=== PATIENT | female | born 1945 | race Caucasian/White ===

== ENCOUNTER 2016-08-24 17:13 | Emergency (ER) | payer MEDICARE, BC ==
[~2016-08-24] VITALS: Ht 165.1 cm; Wt 79.4 kg
--- OUTSIDE RECORDS SUMMARY | 2016-08-24 17:58 | External Medical Summary Rpt ---
Author Author , Organization [facility] Address Unknown Phone Unavailable Purpose Continuity of Care Document - through 2016
--- OUTSIDE RECORDS SUMMARY | 2016-08-24 17:59 | External Medical Summary Rpt ---
Author Author , Organization [facility] Address Unknown Phone Unavailable Purpose Continuity of Care Document - 02-22-2013 through 2016 Immunization Name Date Route CVX Reacti Commen Provid Is Given on t er Refuse d PPV23 Histor [facility] No 2016 ical C39851 Inform ation - Source Unspec ified Zoster 121 Histor H201 No 2013 uscula ical r Inform ation - Source Unspec ified
--- OUTSIDE RECORDS SUMMARY | 2016-08-24 17:59 | External Medical Summary Rpt ---
Author Author [facility] Organization [facility] Address Unknown Phone Unavailable Purpose Continuity of Care Document - through 2016
--- OUTSIDE RECORDS SUMMARY | 2016-08-24 17:59 | External Medical Summary Rpt ---
Author Author , Organization [facility] Address Unknown Phone Unavailable Purpose Continuity of Care Document - 02-22-2013 through 2016 Immunization Name Date Route CVX Reacti Commen Provid Is Given on t er Refuse d PPV23 Histor [facility] No 2016 ical P18385 Inform ation - Source Unspec ified Zoster 121 Histor H201 No 2013 uscula ical r Inform ation - Source Unspec ified
[2016-08-24] MEDS ORDERED: NAPROXEN SODIU500 MG PO (18:03)
--- NOTE | 2016-08-24 18:04 | Emergency Room Report ---
History of Present Illness Time Seen by [id number] Presenting Problem in Triage Pt arrived:Walked Presenting Problem:PT C/O PAIN IN THE MIDDLE OF HER BACK THAT STARTED THIS AM WHEN SHE GOT OUT OF BED, ADVISES IT MAY BE MUSCLE SPASMS Onset of symptoms date/time:/ or onset unknown for:MEDICAL HX UNKNOWN Treatment Prior to Arrival: [employer] Provided by: Sepsis Risk Assessment: Temp: 98.5 B/P: 168/77 MAP: 107 Pulse: 59 Resp: 16 Recent fever? N Clinical Suspician of Infection? N Mental Status: 1 - Regular (Normal Baseline) Sepsis Risk:Low Sepsis Risk Have you (or family members/close friends) recently traveled outside the [place]? N If Yes, where/when: Have you had exposure to infectious disease within the past month? N TB? Other? Specify: Hx right mid back spasms, usually relieved with narcotics, but a little more painful today. No trauma, no chest pain, no SOB, no palpitations, no neurological problems. Chronic issue. ALLERGIES Coded Allergies: azithromycin (Mild, 08/24/16) enoxaparin (Mild, 08/24/16) levofloxacin (Mild, 08/24/16) History Medical History General CAD? No Angina: No NC: No Hypertension? No Hyperlipidemia? No CHF? No DVT? No PE? No COPD? No Asthma? No Anemia? No GERD? No Gastric ulcers? No GI Bleed? No Hernia? No Thyroid Problems? No Hypothyroidism? No CVA? No Seizures? No Diabetes? No Renal Insuffiency? No End Stage Renal Disease? No UTI? No Stones? No BPH? No GB Disease: No Nephritic Syndrome? No Asplenia? No Hepatitis? No Sickle Cell Disease? No Arthritis? No Migraines? No Cataracts? No Glaucoma? No MRSA? No HIV? No TB? No Anxiety? No Depression? 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 Immunization Hx DT/Tetanus 1-4 Years Ago Surgical Hx Previous Surgery?Y HYSTERECTOMY CATARAT DNC Social History Smoking Hx Smoker: Never Smoker Tobacco: No Alcohol Alcohol: No Review of Systems All Other Systems Reviewed and Negative Musculoskeletal see HPI Physical Exam Vital Signs Vital Signs Date Time Temp Pulse Resp B/P Pulse O2 O2 Flow FiO2 Ox Delivery Rate 08/24 1719 98.5 59 16 168/77 98 General Appearance normal appearance, WD/WN, no apparent distress Eye Exam - bilateral eye normal exam, bilateral eye PERRL, bilateral eye EOMI Neck normal inspection, non-tender, supple, full range of motion Respiratory Status Yes: trachea midline, chest symmetrical, non tender chest. No: respiratory distress (R rhomboid muscle spasm), tender on palpation, use of accessory muscles, pain on inspiration, pain on expiration. Lung Sounds bilateral: normal breath sounds, lungs clear. Cardiovascular normal exam, regular rate/rhythm, no peripheral edema, no gallop, no JVD, no murmur, no rub, normal peripheral pulses Peripheral Pulses Pulses normal Yes Back normal inspection, muscle spasm Extremities non-tender, normal range of motion, normal inspection, normal capillary refill, no pedal edema Strength 5 Upper Ext (L), 5 Upper Ext (R), 5 Lower Ext (L), 5 Lower Ext (R) Neurologic alert, normal exam, no motor/sensory deficits, oriented x 3 Skin intact, normal color, warm/dry Medical Decision Making LABS/Meds/Orders Pt receiving controlled substance in ED? No Results/Orders Current Medication Orders Sig/Wesly Start time Last Medication Dose Route Stop Time Status Admin Naproxen 500 MG ONCE ONE 08/24 1814 AC PO 08/25 1815 Departure Departure Time of Disposition 180 Disposition DC Home or Self Care(routine) Clinical Impression Primary Impression: Muscle spasm of back Condition STABLE Referrals SONIYA MILLER (Family) Patient Instructions DI for Musculoskeletal Pain Additional Instructions See Dr. Miller in one to four days for follow up; continue narcotics as he prescribed; Rx Naproxen Discharge Counseling Counseled pt/family regarding diagnosis, medications/RX, home care, follow up needs Prescriptions Current Visit Scripts NAPROXEN (NAPROXEN 500MG TAB) 500 MG PO BID #20 TAB ED Critical Care Critical Care No at 1805
[2016-08-24 18:13] VITALS: BP 168/77
== END 2016-08-24 18:14 | disposition home or self-care (01) ==
LOC: ER 17:13
DX: M62.830 Muscle spasm of back (principal)